=== PATIENT | male | born 1970 | race Caucasian/White ===

== ENCOUNTER 2019-12-27 19:24 | Emergency (ER) | payer SELFPAY ==
[~2019-12-27] VITALS: Ht 167.6 cm; Wt 68.9 kg
[2019-12-27 19:30] VITALS: BP_SYST 123
--- NOTE | 2019-12-27 19:30 | NUR ---
Placed in room 02 . Placed on monitor tech, blood pressure machine and pulse oximeter. To gown for exam. Side rails up.
--- NOTE | 2019-12-27 19:38 | NUR ---
Dr. Leggett bedside for pt eval
--- NOTE | 2019-12-27 19:45 | NUR ---
Pt BIBA to ED seeking refill of his psychiatric medications. Pt denies suicidal ideation. Pt does not know his medications or the doses. Pt states he has a psychiatrist. VSS no s/s of acute distress Resting on gurney rails up
[2019-12-27 20:10] VITALS: BP_SYST 123
--- NOTE | 2019-12-27 20:10 | NUR ---
Patient given written and verbal discharge instructions and verbalizes understanding. ER MD discussed with patient the results and treatment provided. Patient in stable condition. ID arm band removed. Patient educated on pain management and to follow up with PMD. Pain Scale 0/10 Opportunity for questions provided and answered.
== END 2019-12-27 20:10 | disposition home or self-care (01) ==
LOC: SED 19:24
DX: Z76.0 Encounter for issue of repeat prescription (principal)
CPT/HCPCS: 99281